=== PATIENT | female | born 1980 | race American Indian/Alaskan Native ===

== ENCOUNTER 2018-05-07 08:00 | Day surgery (SDC) | payer OTHER ==
[2018-05-04 12:23] VITALS: BMI 27.4
[2018-05-07] MEDS ORDERED: Lidocaine 4% (Laryng-O-Jet) Kit MM ONE (08:14)
[2018-05-07] MEDS ORDERED: Propofol 10 mg/ml Inj (20 ML) ONE (09:06)
[2018-05-07] MEDS ORDERED: Lidocaine 2% MPF (5 ml) Inj ONE (09:06)
--- NOTE | 2018-05-09 09:15 | CARD ---
APPROVED REPORT Date of service: 05/07/2018 EXAM: Transesophageal echocardiogram with color flow Doppler. INDICATION Mitral Valve Disease Mitral Valve E/A ratio0.0 TDI E/Lateral E'0.0E/Medial E'0.0 Reason For Test : Rule out endocarditis. PROCEDURE After obtaining informed consent, patient underwent transesophageal echo in the [facility]. Type of Sedation : Conscious Sedation Sedation was provided by anesthesiologist. Sedation was achieved with intravenously. The BRANDI was performed complications. Throughout the procedure, the blood pressure, pulse oximetry, cardiac rhythm, and rate were monitored. The patient tolerated the procedure without adverse effects. Recovery from conscious sedation was uneventful and vital signs were stable. LEFT VENTRICLE The left ventricle is normal size. There is normal left ventricular wall thickness. The left ventricular function is normal. The left ventricular ejection fraction is within the normal range. There is normal LV segmental wall motion. The left ventricular diastolic function is normal. No left ventricle thrombus noted on this study. There is no ventricular septal defect visualized. There is no left ventricular aneurysm. RIGHT VENTRICLE The right ventricle is normal size. There is normal right ventricular wall thickness. The right ventricular systolic function is normal. ATRIA The left atrium size is normal. The right atrium size is normal. The interatrial septum is intact with no evidence for an atrial septal defect. AORTIC VALVE The aortic valve is normal in structure. No aortic regurgitation is present. There is no aortic valvular stenosis. There is no aortic valvular vegetation. MITRAL VALVE Anterior Mitral Leaflet slightly thickened. Mild calcification of Chordae Tendineae of Anterior Mitral leaflet noted. No evidence of Endocarditis There is no evidence of mitral valve prolapse. There is no mitral valve stenosis. Mitral regurgitation is mild. TRICUSPID VALVE The tricuspid valve is normal in structure. There is mild tricuspid regurgitation. There is no tricuspid valve prolapse or vegetation. There is no tricuspid valve stenosis. PULMONIC VALVE The pulmonary valve is normal in structure. There is no pulmonic valvular regurgitation. There is no pulmonic valvular stenosis. GREAT VESSELS The aortic root is normal in size. <Conclusion> The left ventricular function is normal. The left ventricular ejection fraction is within the normal range. The right ventricle is normal size. The right ventricular systolic function is normal. The aortic valve is normal in structure. There is mild tricuspid regurgitation. The aortic root is normal in size. Anterior Mitral Leaflet slightly thickened. Mild calcification of Chordae Tendineae of Anterior Mitral leaflet noted. No evidence of Endocarditis
== END 2018-05-07 11:30 | disposition home or self-care (01) ==
LOC: C.CATHLAB 08:00
PROVIDERS: ATTEND Internal Medicine Cardiovascular Disease
DX: I05.8 Other rheumatic mitral valve diseases (principal)
CPT/HCPCS: 84703; 93312; J2704; J3010